=== PATIENT | male | born 1975 | race African-American/Black ===

== ENCOUNTER 2017-06-07 20:53 | Emergency (ER) | payer SELFPAY ==
[~2017-06-07] VITALS: Ht 165.1 cm; Wt 61.0 kg
[2017-06-07 21:45] VITALS: BP 90/63
== END 2017-06-08 01:19 | disposition left against medical advice (07) ==
LOC: ER 20:53
DX: R19.7 Diarrhea, unspecified (principal); Z53.21 Procedure and treatment not carried out due to patient leaving prior to being seen by health care provider